=== PATIENT | female | born 1975 ===

== ENCOUNTER 2018-05-22 23:36 | Emergency (ER) | payer MEDICAID ==
[2018-05-22 23:36] VITALS: BMI 20.1
[2018-05-22 23:40] VITALS: BP 125/78; RESP 20; TEMP 98.6; O2SAT 100
--- NOTE | 2018-05-23 01:11 | ED PDOC ---
HPI: Psych/Substance Abuse Time Seen by Provider: 05/22/18 23:52 Chief Complaint (Nursing): Anxiety Chief Complaint (Provider): Anxiety History Per: Patient History/Exam Limitations: no limitations Onset/Duration Of Symptoms: Days (x1) Current Symptoms Are (Timing): Still Present Additional Complaint(s): 43 y/o female with a PMHx of anxiety and alcohol dependence presenting for evaluation of anxiety x1 day. Patient comes to ED requesting detox referral. Patient admits to alcohol use today. PMD: None reported Past Medical History Reviewed: Historical Data, Nursing Documentation, Vital Signs Vital Signs: Last Vital Signs Temp 98.6 F 05/22/18 23:37 Pulse 109 H 05/22/18 23:37 Resp 20 05/22/18 23:37 BP 125/78 05/22/18 23:37 Pulse Ox 100 05/22/18 23:37 - Medical History PMH: Anxiety, Asthma, Bronchitis, Pneumonia Other PMH: Alcohol dependence - Surgical History Surgical History: No Surg Hx - Family History Family History: States: Unknown Family Hx - Social History Current smoker - smoking cessation education provided: No Alcohol: > 2 Drinks/Day Drugs: Denies - Immunization History Hx Tetanus Toxoid Vaccination: No Hx Influenza Vaccination: No Hx Pneumococcal Vaccination: No - Home Medications Home Medications: Ambulatory Orders Medication Instructions Recorded chlordiazePOXIDE [Chlordiazepoxide 25 mg PO Q6 PRN #8 cap 05/23/18 HCl] - Allergies Allergies/Adverse Reactions: Allergies Allergy/AdvReac Type Severity Reaction Status Date / Time No Known Allergies Allergy Verified 05/22/18 23:37 Review of Systems ROS Statement: Except As Marked, All Systems Reviewed And Found Negative Psych: Positive for: Anxiety Physical Exam - Reviewed Nursing Documentation Reviewed: Yes Vital Signs Reviewed: Yes - Physical Exam Appears: Positive for: Non-toxic, No Acute Distress Head Exam: Positive for: ATRAUMATIC, NORMAL INSPECTION, NORMOCEPHALIC Skin: Positive for: Normal Color, Warm, Dry. Negative for: Rash Eye Exam: Positive for: EOMI, Normal appearance, PERRL ENT: Positive for: Normal ENT Inspection Neck: Positive for: Normal, Painless ROM, Supple Cardiovascular/Chest: Positive for: Tachycardia Respiratory: Positive for: Normal Breath Sounds. Negative for: Respiratory Distress Gastrointestinal/Abdominal: Positive for: Normal Exam, Soft. Negative for: Tenderness Back: Positive for: Normal Inspection. Negative for: L CVA Tenderness, R CVA Tenderness, Vertebral Tenderness Extremity: Positive for: Normal ROM. Negative for: Pedal Edema, Deformity Neurologic/Psych: Positive for: Alert, Oriented, Mood/Affect (labile). Negative for: Motor/Sensory Deficits - ECG O2 Sat by Pulse Oximetry: 100 (RA) Pulse Ox Interpretation: Normal Medical Decision Making Medical Decision Makin:52 Impression: 43 y/o female with anxiety in setting of alcohol abuse Plan: -Crisis evaluation -Reevaluation 01:03 Patient stable for discharge. Given 1 dose of Librium in limited supply and encouraged to follow up with outpatient detox. Scribe Attestation: Documented by Tim Correa, acting as a scribe for Carmine Marley MD. Provider Scribe Attestation: All medical record entries made by the Scribe were at my direction and personally dictated by me. I have reviewed the chart and agree that the record accurately reflects my personal performance of the history, physical exam, medical decision making, and the department course for this patient. I have also personally directed, reviewed, and agree with the discharge instructions and disposition. Disposition - Clinical Impression Clinical Impression: Alcohol dependence, Anxiety disorder - Patient ED Disposition Is Patient to be Admitted: No Counseled Patient/Family Regarding: Studies Performed, Diagnosis, Need For Followup - Disposition Disposition: Routine/Home Disposition Time: 01:09 Condition: STABLE Additional Instructions: DANA GARCIA, thank you for letting us take care of you today. Your provider was Carmine Marley MD and you were treated for ANXIETY. The emergency medical care you received today was directed at your acute symptoms. If you were prescribed any medication, please fill it and take as directed. It may take several days for your symptoms to resolve. Return to the Emergency Department if your symptoms worsen, do not improve, or if you have any other problems. Please contact your doctor or call one of the physicians/clinics you have been referred to that are listed on the Patient Visit Information form that is included in your discharge packet. Bring any paperwork you were given at discharge with you along with any medications you are taking to your follow up visit. Our treatment cannot replace ongoing medical care by a primary care provider outside of the emergency department. Thank you for allowing the [facility] team to be part of your care today. If you had an X-Ray or CT scan: A Radiologist will review the ED reading if any change in treatment is needed we will contact you. If you had a blood, urine, or wound culture: It will take several days for the results, if any change in treatment is needed we will contact you. If you had an STI test: It will take 48 hours for the results. Please call after 1 week if you have not heard back. Prescriptions: chlordiazePOXIDE [Chlordiazepoxide HCl] 25 mg PO Q6 PRN #8 cap PRN Reason: Anxiety Instructions: Alcohol Use - When Is Drinking a Problem? Forms: [employer] (Slovenian)
[2018-05-23 01:55] VITALS: PULSE 79
== END 2018-05-23 01:31 | disposition home or self-care (01) ==
LOC: H.ER 23:36
DX: F10.20 Alcohol dependence, uncomplicated (principal); F41.9 Anxiety disorder, unspecified

== ENCOUNTER 2019-04-03 07:44 | Emergency (ER) | payer MEDICAID ==
[2019-04-03 07:47] VITALS: BMI 16.9
[2019-04-03 07:48] VITALS: O2SAT 98
--- NOTE | 2019-04-03 09:28 | ED PDOC ---
Lower Extremity Pain/Injury Time Seen by Provider: 04/03/19 08:05 Chief Complaint (Nursing): Lower Extremity Problem/Injury Chief Complaint (Provider): Lower Extremity Problem/Injury History Per: Patient History/Exam Limitations: no limitations Onset/Duration Of Symptoms: Hrs Current Symptoms Are (Timing): Still Present Additional Complaint(s): Patient is a 44 y/o female with an extensive PMHx who presents to the ED for evaluation of right foot and ankle pain onset last night. Patient states she was walking outside for a smoke when she twisted her ankle. Patient reported swelling last night that has now resolved. Patient denies difficulty ambulating, depression, and suicidal or homicidal ideation. Of note, patient reports she has been experiencing right ankle and foot pain for years since she sustained a hairline fracture back when she was in the . PCP: None Past Medical History Reviewed: Historical Data, Nursing Documentation, Vital Signs Vital Signs: Last Vital Signs Temp 98.4 F 04/03/19 07:48 Pulse 81 04/03/19 07:48 Resp 17 04/03/19 07:48 BP 99/67 L 04/03/19 07:48 Pulse Ox 98 04/03/19 07:48 Primary Care Provider: FAMILY PROVIDER,NO - Medical History PMH: Anxiety, Asthma, Bronchitis, COPD (bronchitis), Depression, Gastritis, Migraine (Takes tylenol PRN), Pancreatitis, Pneumonia, Post Traumatic Stress Disorder Denies: Diabetes, Hepatitis, HIV, HTN, Chronic Kidney Disease, Seizures, Sexually Transmitted Disease Other PMH: hairline fracture of right ankle - Surgical History Surgical History: No Surg Hx - Family History Family History: States: Unknown Family Hx - Living Arrangements Living Arrangements: Other ([facility]itentiary) - Immunization History Hx Tetanus Toxoid Vaccination: Yes Hx Influenza Vaccination: Yes (10/2018) Hx Pneumococcal Vaccination: No - Home Medications Home Medications: Ambulatory Orders Medication Instructions Recorded Mirtazapine [Remeron] 15 mg PO HS #30 tab 03/12/19 Multivitamins [Hexavitamin] 1 tab PO DAILY #30 tab 03/12/19 Nitrofurantoin Macrocrystals 100 mg PO Q12 #7 cap 03/12/19 [Macrobid] traZODone [Desyrel] 50 mg PO HS PRN #30 tab 03/12/19 Naproxen 500 mg PO BID #20 tab 04/03/19 - Allergies Allergies/Adverse Reactions: Allergies Allergy/AdvReac Type Severity Reaction Status Date / Time No Known Allergies Allergy Verified 04/03/19 07:58 Review of Systems ROS Statement: Except As Marked, All Systems Reviewed And Found Negative Musculoskeletal: Positive for: Foot Pain (right ), Other (right ankle pain) Psych: Negative for: Depression, Suicidal ideation (or homicidal ideation) Physical Exam - Reviewed Nursing Documentation Reviewed: Yes Vital Signs Reviewed: Yes - Physical Exam Appears: Positive for: No Acute Distress Head Exam: Positive for: ATRAUMATIC, NORMAL INSPECTION, NORMOCEPHALIC Skin: Positive for: Normal Color, Warm, DRY Eye Exam: Positive for: EOMI, Normal appearance, PERRL Neck: Positive for: Normal, Painless ROM, Supple Cardiovascular/Chest: Positive for: Regular Rate, Rhythm. Negative for: Murmur Respiratory: Positive for: Normal Breath Sounds. Negative for: Respiratory Dis tress Back: Positive for: Normal Inspection. Negative for: L CVA Tenderness, R CVA Tenderness Extremity: Positive for: Normal ROM (of right foot and ankle secondary to pain), Tenderness (diffuse to right foot and ankle), Capillary Refill (less than 2 seconds). Negative for: Pedal Edema, Deformity, Swelling, Other (ecchymosis) Neurological/Psych: Positive for: Awake, Alert, Oriented (x3), Mood/Affect (tearful and upset) - ECG O2 Sat by Pulse Oximetry: 98 (RA) Pulse Ox Interpretation: Normal - Progress Re-evaluation Time: 11:30 Condition: Re-examined, Improved Medical Decision Making Medical Decision Making: Time: 0819 Impression: Right Ankle and Foot Pain Ankle Right 3 Views Routine [Rad] Foot Right 3 views Routine [Rad] Time: 1111 Foot Xray FINDINGS: BONES: No fracture. Relative radiolucency over the medial 1st metatarsal head may be focal osteopenia or benign intraosseous cystic change here. Benign-appearing sclerotic focus possible bone island proximal 1st metatarsal. JOINTS: Minimal 1st metatarsal-phalangeal joint arthrosis. Trace hallux valgus like orientation. SOFT TISSUES: Normal. OTHER FINDINGS: None. IMPRESSION: No fracture or lytic lesion. Other findings as above. Time: 1112 Ankle Xray FINDINGS: BONES: Normal. No fracture. JOINTS: Normal. No osteoarthritis. Ankle mortise maintained. Talar dome intact SOFT TISSUES: Normal. OTHER FINDINGS: None. IMPRESSION: Normal right ankle radiographs. Scribe Attestation: Documented by Ralph Rae, acting as a scribe for Cecy Pinto MD. Provider Scribe Attestation: All medical record entries made by the Scribe were at my direction and personally dictated by me. I have reviewed the chart and agree that the record accurately reflects my personal performance of the history, physical exam, medical decision making, and the department course for this patient. I have also personally directed, reviewed, and agree with the discharge instructions and disposition. Disposition - Clinical Impression Clinical Impression: Ankle injury, Ankle pain - Patient ED Disposition Is Patient to be Admitted: No Doctor Will See Patient In The: Office Counseled Patient/Family Regarding: Studies Performed, Diagnosis - Disposition Referrals: Podiatry Clinic [Outside] Disposition: Routine/Home Disposition Time: 11:00 Condition: GOOD Additional Instructions: DANA GARCIA, thank you for letting us take care of you today. Your provider was Cecy Pinto MD and you were treated for PSYCH EVAL, RT LEG PAIN. The emergency medical care you received today was directed at your acute symptoms. If you were prescribed any medication, please fill it and take as directed. It may take several days for your symptoms to resolve. Return to the Emergency Department if your symptoms worsen, do not improve, or if you have any other problems. Please contact your doctor or call one of the physicians/clinics you have been referred to that are listed on the Patient Visit Information form that is included in your discharge packet. Bring any paperwork you were given at disch arge with you along with any medications you are taking to your follow up visit. Our treatment cannot replace ongoing medical care by a primary care provider outside of the emergency department. Thank you for allowing the [facility] team to be part of your care today. If you had an X-Ray or CT scan: A Radiologist will review the ED reading if any change in treatment is needed we will contact you. Prescriptions: Naproxen 500 mg PO BID #20 tab Instructions: Ankle Sprain
--- NOTE | 2019-04-03 11:15 | RAD ---
Date of service: 04/03/2019 PROCEDURE: Right Ankle Radiographs. HISTORY: ankle pain injury COMPARISON: None available. TECHNIQUE: 3 views obtained. FINDINGS: BONES: Normal. No fracture. JOINTS: Normal. No osteoarthritis. Ankle mortise maintained. Talar dome intact SOFT TISSUES: Normal. OTHER FINDINGS: None. IMPRESSION: Normal right ankle radiographs.
--- NOTE | 2019-04-03 11:15 | RAD ---
Date of service: 04/03/2019 PROCEDURE: Right Foot Radiographs. HISTORY: right foot pain COMPARISON: None. TECHNIQUE: 3 views obtained. FINDINGS: BONES: No fracture. Relative radiolucency over the medial 1st metatarsal head may be focal osteopenia or benign intraosseous cystic change here. Benign-appearing sclerotic focus possible bone island proximal 1st metatarsal. JOINTS: Minimal 1st metatarsal-phalangeal joint arthrosis. Trace hallux valgus like orientation. SOFT TISSUES: Normal. OTHER FINDINGS: None. IMPRESSION: No fracture or lytic lesion. Other findings as above.
[2019-04-03 11:43] VITALS: BP 102/72; PULSE 89; RESP 18; TEMP 98.1
== END 2019-04-03 11:53 | disposition home or self-care (01) ==
LOC: H.ER 07:44
DX: S99.912A Unspecified injury of left ankle, initial encounter (principal); X50.9XXA Other and unspecified overexertion or strenuous movements or postures, initial encounter; Y92.89 Other specified places as the place of occurrence of the external cause